=== PATIENT | female | born 1955 | race Caucasian/White ===

== ENCOUNTER 2021-06-03 10:14 | Outpatient (CLI) | payer MEDICARE | END 2021-06-03 10:15 | disposition home or self-care (01) | LOC: TBSIIMAG 10:14 | PROVIDERS: ATTEND Neurological Surgery | DX: M54.50 Low back pain, unspecified (principal); M41.9 Scoliosis, unspecified; M47.816 Spondylosis without myelopathy or radiculopathy, lumbar region; M48.061 Spinal stenosis, lumbar region without neurogenic claudication; M48.07 Spinal stenosis, lumbosacral region; N28.9 Disorder of kidney and ureter, unspecified; N13.30 Unspecified hydronephrosis | CPT/HCPCS: 72120; 72148 ==